=== PATIENT | male | born 1995 | race Two or more races ===

== ENCOUNTER 2016-10-28 12:40 | Emergency (ER) | payer OTHER ==
[2016-10-28 12:51] VITALS: BP 132/60; PULSE 60; TEMP 97.7; BMI 22.4
[2016-10-28] MEDS ORDERED: ONDANSETRON 4 MG/2 ML VIAL IVPB ONE (13:02)
[2016-10-28] MEDS ORDERED: SODIUM CHLORIDE 1,000 ML IV ONE (13:02)
--- NOTE | 2016-10-28 13:02 | PDOC ---
History of Present Illness - General History Source: Patient Exam Limitations: No Limitations - History of Present Illness Initial Comments: 10/28/16 15:43 The patient is a 21 year old male, with no significant past medical history, who presents to the emergency department complaining of abdominal pain for approximately 1 day. The patient reports his pain began after lifting a heavy box of cans yesterday. He reports the pain is constant, nonradiating, and localized to the lower abdomen. Patient rates his pain as an 8/10. He reports associated nausea, but denies vomiting, diarrhea, or constipation. His last bowel movement was this morning(normal stool), which did not alleviate his pain. He reports his pain is exacerbated with movement or lifting, but alleviated with tylenol. The patient reports he was at [facility] about 1 month ago, where he was admitted for 3 days for a virus, but was not given an official diagnosis. He reports a CT was done during his admission, which revealed inflammation of the intestine. The patient denies flank pain, dysuria, hematuria, frequency, or urgency. The patient denies fever, chills, cough, headache, or dizziness. The patient denies chest pain, shortness of breath, diaphoresis, or palpitations. The patient denies any recent travel or sick contacts. Allergies: None reported. Past Surgical History: None reported. Social History: Non-smoker. Denies alcohol or drug use. <Kenia Daniel - Last Filed: 10/28/16 15:42> - General History Source: Patient Exam Limitations: No Limitations - History of Present Illness Travel History: No <Orlin Marvin - Last Filed: 10/29/16 09:37> - General Chief Complaint: Pain Stated Complaint: ABD PAIN, NAUSEA Time Seen by Provider: 10/28/16 12:56 Past History <Kenia Daniel - Last Filed: 10/28/16 15:42> - Psycho/Social/Smoking Cessation Hx Anxiety: No Suicidal Ideation: No Smoking History: Never smoked Have you smoked in the past 12 months: No Information on smoking cessation initiated: No Hx Alcohol Use: No Drug/Substance Use Hx: No Substance Use Type: None <Orlin Marvin - Last Filed: 10/29/16 09:37> - Past Medical History Allergies/Adverse Reactions: Allergies Allergy/AdvReac Type Severity Reaction Status Date / Time No Known Allergies Allergy Verified 10/28/16 12:51 Home Medications: Ambulatory Orders NK [No Known Home Medication] 03/25/16 Review of Systems - Review of Systems Able to Perform ROS?: Yes Comments:: 10/28/16 15:43 CONSTITUTIONAL: No reported: Fever, Chills, Diaphoresis, Generalized Weakness, Malaise, Loss of Appetite HEENT: No reported: Rhinorrhea, Nasal Congestion, Throat Pain, Throat Swelling, Difficulty Swallowing, Mouth Swelling, Ear Pain, Eye Pain, Visual Changes CARDIOVASCULAR: No reported: Chest Pain, Syncope, Palpitations, Irregular Heart Rate, Lightheadedness, Peripheral Edema RESPIRATORY: No reported: Cough, Shortness of Breath, SOB with Exertion, Orthopnea, Wheezing , Stridor, Hemoptysis GASTROINTESTINAL: + Abdominal pain, +Nausea. No reported: Abdominal Distension, Vomiting, Diarrhea , Constipation, Melena, Hematochezia GENITOURINARY: No reported: Dysuria, Frequency, Urgency, Hesitancy, Flank Pain, Genital Pain MUSCULOSKELETAL: No reported: Myalgia, Arthralgia, Joint Swelling, Back pain, Neck Pain SKIN: No reported: Rash, Itching, Pallor HEMEATOLOGIC/IMMUNOLOGIC: No reported: Easy Bleeding, Easy Bruising, Lymphadenopathy, Frequent infections ENDOCRINE: No reported: Unexplained Weight Gain, Unexplained Weight Loss, Heat Intolerance , Cold Intolerance NEUROLOGIC: No reported: Headache, Focal Weakness, Paresthesias, Vertigo, Lightheadedness, Unsteady Gait, Seizure, Mental Status Changes, Incontinence PSYCHIATRIC: No reported: Anxiety, Depression <Daniel,Giomilsy - Last Filed: 10/28/16 15:42> *Physical Exam - Vital Signs Last Vital Signs Temp Pulse Resp BP Pulse Ox 97.7 F 60 18 132/60 99 10/28/16 12:49 10/28/16 12:49 10/28/16 12:49 10/28/16 12:49 10/28/16 12:49 - Physical Exam Comments: 10/28/16 15:43 GENERAL: The patient is awake, alert, and fully oriented, Nontoxic - in no acute distress. HEAD: Normocephalic, atraumatic. EYES: extraocular movements intact, sclera anicteric, conjunctiva clear. ENT: Normal voice, Moist mucous membranes. NECK: Normal range of motion, supple LUNGS: Breath sounds equal, clear to auscultation bilaterally. No wheezes, no rhonchi, no rales. HEART: Regular rate and rhythm, without murmur, rub or gallop. ABDOMEN: +Mild diffuse tenderness in the lower abdomen. Soft, normoactive bowel sounds. No guarding, no rebound. No CVA tenderness EXTREMITIES: Normal range of motion, no edema. No clubbing or cyanosis. No cords, erythema, or tenderness. NEUROLOGICAL: No facial asymmetry, Normal speech, PSYCH: Normal mood, normal affect. SKIN: Warm, Dry, normal turgor <Kenia Daniel - Last Filed: 10/28/16 15:42> - Vital Signs Last Vital Signs Temp Pulse Resp BP Pulse Ox 97.7 F 60 18 132/60 99 10/28/16 12:49 10/28/16 12:49 10/28/16 12:49 10/28/16 12:49 10/28/16 12:49 <Orlin Marvin - Last Filed: 10/29/16 09:37> ED Treatment Course - LABORATORY CBC & Chemistry Diagram: 10/28/16 13:20 10/28/16 13:20 - ADDITIONAL ORDERS Additional order review: Laboratory Results 10/28/16 13:20 Sodium 139 Potassium 4.1 Chloride 103 Carbon Dioxide 28 Anion Gap 8 BUN 11 D Creatinine 0.7 Creat Clearance w eGFR > 60 Random Glucose 79 D Calcium 9.5 Total Bilirubin 0.6 D AST 19 D ALT 18 Alkaline Phosphatase 78 Total Protein 8.0 Albumin 4.6 Lipase 205 10/28/16 13:20 RBC 5.52 MCV 85.7 MCHC 33.7 RDW 13.6 MPV 8.5 Neutrophils % 57.5 Lymphocytes % 33.1 Monocytes % 6.7 Eosinophils % 1.8 Basophils % 0.9 - Medications Given in the ED: ED Medications Discontinued Medications Generic Name Dose Route Start Last Admin Trade Name Freq PRN Reason Stop Dose Admin Ketorolac Tromethamine 30 mg 10/28/16 13:24 10/28/16 13:28 Toradol Injection - IVPUSH 10/28/16 13:25 30 mg ONCE ONE Administration <Kenia Daniel - Last Filed: 10/28/16 15:42> - LABORATORY CBC & Chemistry Diagram: 10/28/16 13:20 10/28/16 13:20 <Orlin Marvin - Last Filed: 10/29/16 09:37> Medical Decision Making - Medical Decision Making 10/28/16 13:24 21y M no pmhx presents wth abdominal pain since yesterday - pt states he was lifting something yesterday and started having lower abd pain, pt states he had similar pain 1 month ago for which he was admitted to [facility] for 3 nights and was told it wa sa virus - no associated f,c, n/v, urinary symptoms. on exam pt had mild tenderness in the mid lower abdomen. suspect strain however will ck ua and labs due to uncertainy due to pts recent admission A portion of this note was documented by scribe services under my direction. I have reviewed the details of the note, within reason, and agree with the documentation with the following case summary and management plan written by me 10/28/16 16:53 labs unremarkble pt feeling improved suspect muscle strain will d/c the pt with pmd fu return precautions were discussed I discussed the physical exam findings, ancillary test results and final diagnoses with the patient. I answered all of the patient's questions. The patient was satisfied with the care received and felt comfortable with the discharge plan and treatment plan. The patient will call their primary care physician within 24 hours to arrange follow-up and will return to the Emergency Department with any new, persistent or worsening symptoms. <Orlin Marvin - Last Filed: 10/29/16 09:37> *DC/Admit/Observation/Transfer - Attestations Scribe Attestion: 10/28/16 15:43 Documentation prepared by Kenia Daniel, acting as certified medical biller for Orlin Marvin MD. <Kenia Daniel - Last Filed: 10/28/16 15:42> - Discharge Dispostion Admit: No <Orlin Marvin - Last Filed: 10/29/16 09:37> Diagnosis at time of Disposition: Abdominal muscle strain Qualifiers: Encounter type: initial encounter Qualified Code(s): S39.011A - Strain of muscle, fascia and tendon of abdomen, initial encounter - Discharge Dispostion Disposition: HOME Condition at time of disposition: Improved - Referrals Referrals: [facility] [Provider Group] - Patient Instructions Printed Discharge Instructions: DI for Abdominal Muscle Strain Additional Instructions: Take tylenol for pain. avoid heavy lifting. Print Language: HUNGARIAN
[2016-10-28] MEDS ORDERED: KETOROLAC TROMETHAMINE 30 MG/1 ML VIAL IVPUSH ONE (13:24)
[2016-10-28] MEDS ORDERED: KETOROLAC TROMETHAMINE 30 MG/1 ML VIAL ONE (13:24)
[2016-10-28 13:28] LABS: BASOPHIL 0.9 % (0-2.0); EOSINOPHIL 1.8 % (0-4.5); MCH 28.9 pg (25.7-33.7); MCHC 33.7 g/dl (32.0-35.9); MEAN CELL VOLUME 85.7 fl (80-96); MEAN PLT VOLUME 8.5 fl (7.5-11.1); NEUTROPHILS 57.5 % (42.8-82.8); PLATELET COUNT 152 K/MM3 (134-434); RDW 13.6 % (11.9-15.9); WHITE BLOOD COUNT 3.6 K/mm3 (4.0-10.0)
[2016-10-28 14:56] LABS: ALBUMIN 4.6 g/dl (3.4-5.0); ANION GAP 8 (8-16); CALCIUM 9.5 mg/dL (8.5-10.1); CO2 28 mmol/L (21-32); CREATININE 0.7 mg/dL (0.7-1.3); GLUCOSE,RANDOM 79 mg/dL (74-106); SGOT/AST 19 U/L (15-37); SGPT/ALT 18 U/L (12-78)
[2016-10-28 14:58] LABS: ALK PHOS 78 U/L (45-117); BILIRUBIN,TOTAL 0.6 mg/dL (0.2-1.0)
[2016-10-28 16:30] LABS: URINE APPEARANCE CLEAR; URINE BILIRUBIN NEGATIVE (NEGATIVE); URINE BLOOD NEGATIVE (NEGATIVE); URINE COLOR LTYELLOW; URINE GLUCOSE (UA) NEGATIVE (NEGATIVE); URINE KETONE NEGATIVE (NEGATIVE); URINE LEUK ESTERASE NEGATIVE (NEGATIVE); URINE NITRITE NEGATIVE (NEGATIVE); URINE PROTEIN NEGATIVE (NEGATIVE); URINE UROBILINOGEN NEGATIVE E.U./dl (0.2-1.0)
== END 2016-10-28 17:05 | disposition home or self-care (01) ==
LOC: JER 12:40
PROC: 3E0333Z Introduction of Anti-inflammatory into Peripheral Vein, Percutaneous Approach (ICD-10-PCS; principal; 2016-10-28)
DX: S39.011A Strain of muscle, fascia and tendon of abdomen, initial encounter (principal); X58.XXXA Exposure to other specified factors, initial encounter; Y93.89 Activity, other specified; Y92.9 Unspecified place or not applicable
CPT/HCPCS: 36415; 80053; 81003; 83690; 85025; 96374; 99282-25

== ENCOUNTER 2017-04-14 13:28 | Emergency (ER) | payer SELFPAY ==
[2017-04-14 13:35] VITALS: BP 123/64; PULSE 98; TEMP 98.5; BMI 23.3
== END 2017-04-14 15:39 | disposition left against medical advice (07) ==
LOC: JERFT 13:28
DX: Z53.21 Procedure and treatment not carried out due to patient leaving prior to being seen by health care provider (principal)
CPT/HCPCS: 99281-25

== ENCOUNTER 2017-04-15 22:49 | Emergency (ER) | payer SELFPAY ==
--- NOTE | 2017-04-15 22:54 | PDOC ---
History of Present Illness - General Chief Complaint: Wound Stated Complaint: FACE WOUND Past History - Past Medical History Allergies/Adverse Reactions: Allergies Allergy/AdvReac Type Severity Reaction Status Date / Time No Known Allergies Allergy Verified 04/14/17 13:35 Home Medications: Ambulatory Orders NK [No Known Home Medication] 03/25/16 - Psycho/Social/Smoking Cessation Hx Anxiety: No Suicidal Ideation: No Smoking History: Never smoked Have you smoked in the past 12 months: No Hx Alcohol Use: No Drug/Substance Use Hx: No Substance Use Type: None *DC/Admit/Observation/Transfer Diagnosis at time of Disposition: Closed tripod fracture of zygomaticomaxillary complex - Discharge Dispostion Disposition: HOME Condition at time of disposition: Stable Admit: No - Referrals - Patient Instructions Printed Discharge Instructions: DI for Orbital Fracture, DI for Zygomatic Fracture Additional Instructions: [facility] Department of Dentistry Contact Information: [address] [place] [id number] you would like to meet with Dr. Isac Morales to discuss your options, please contact our practice today. Dr. Morales will be happy to answer your questions and talk with you about procedures that may be right for you. GIVE US A CALL [address] [place], [place] [address]jer[address] [facility] [address] [place] [address] [address] [place] [address] [facility] [address] [place] [id number] Print Language: FIJIAN
[2017-04-15] MEDS ORDERED: CEPHALEXIN MONOHYDRATE 250 MG CAPSULE (FP) PO ONE (22:55)
[2017-04-15 23:40] VITALS: BP 127/72; PULSE 74; TEMP 98.2; BMI 22.4
[2017-04-16] MEDS ORDERED: IBUPROFEN 600 MG TABLET (FP) PO ONE ×2 (01:20→01:27)
== END 2017-04-16 01:32 | disposition home or self-care (01) ==
LOC: FER 22:49
DX: S02.402A Zygomatic fracture, unspecified side, initial encounter for closed fracture (principal); X58.XXXA Exposure to other specified factors, initial encounter; Y93.9 Activity, unspecified; Y92.9 Unspecified place or not applicable
CPT/HCPCS: 70486-TC; 99281-25

== ENCOUNTER 2020-12-29 20:56 | Emergency (ER) | payer SELFPAY ==
[2020-12-29 20:59] VITALS: BMI 26.8
[2020-12-29] MEDS ORDERED: SODIUM CHLORIDE 1,000 ML IV STA (21:48)
[2020-12-29] MEDS ORDERED: ACETAMINOPHEN 1000 MG/100 ML VIAL (NON FORMULARY) IVPB ONE (21:48)
[2020-12-29] MEDS ORDERED: ACETAMINOPHEN INJECTION 100 ML IVPB ONE ×2 (22:08→22:51)
[2020-12-29 22:32] LABS: BASO % 0.9 % (0-2.0); EOS % 2.3 % (0-4.5); HEMATOCRIT 43.3 % (35.4-49); HEMOGLOBIN 14.9 GM/dL (11.7-16.9); LYMPH % 29.1 % (8-40); MCH 30.6 pg (25.7-33.7); MCHC 34.4 g/dl (32.0-35.9); MEAN CELL VOLUME 88.9 fl (80-96); MEAN PLT VOLUME 8.7 fl (7.5-11.1); MONO % 6.2 % (3.8-10.2); NEUT % 61.5 % (42.8-82.8); PLATELET COUNT 179 K/MM3 (134-434); RBC 4.87 M/mm3 (4.00-5.60); WHITE BLOOD COUNT 5.9 K/mm3 (4.0-10.0)
[2020-12-29 22:34] LABS: URINE APPEARANCE CLEAR; URINE BILIRUBIN NEGATIVE (NEGATIVE); URINE COLOR YELLOW; URINE GLUCOSE (UA) NEGATIVE (NEGATIVE); URINE KETONE NEGATIVE (NEGATIVE); URINE LEUK ESTERASE NEGATIVE (NEGATIVE); URINE NITRITE NEGATIVE (NEGATIVE); URINE PROTEIN NEGATIVE (NEGATIVE); URINE UROBILINOGEN 0.2 mg/dL (0.2-1.0)
[2020-12-29 22:52] LABS: CALCIUM 8.9 mg/dL (8.5-10.1)
[2020-12-29 22:53] LABS: ALBUMIN 4.4 g/dl (3.4-5.0); BLOOD UREA NITROGEN 10.4 mg/dL (7-18)
[2020-12-29 22:56] LABS: CREATININE 0.8 mg/dL (0.55-1.3)
[2020-12-29 22:57] LABS: BILIRUBIN,TOTAL 0.5 mg/dL (0.2-1)
[2020-12-29 22:58] LABS: TOT PROT 7.7 g/dl (6.4-8.2)
[2020-12-30] MEDS ORDERED: morphine CARPU-JECT 2 MG/1 ML DISP.SYRIN IVPUSH ONE (01:28)
[2020-12-30] MEDS ORDERED: MORPHINE SULFATE 2 MG/ML VIAL ONE (02:18)
[2020-12-30 03:54] VITALS: BP 136/87; PULSE 55; TEMP 97.9
[2020-12-30] MEDS ORDERED: KETOROLAC TROMETHAMINE 15 MG/ML VIAL IVPUSH ONE (04:24)
[2020-12-30] MEDS ORDERED: KETOROLAC TROMETHAMINE 15 MG/ML VIAL ONE (04:31)
== END 2020-12-30 04:50 | disposition home or self-care (01) ==
LOC: JER 20:56
PROC: 3E0333Z Introduction of Anti-inflammatory into Peripheral Vein, Percutaneous Approach (ICD-10-PCS; principal; 2020-12-29)
PROC: 3E0333Z Introduction of Anti-inflammatory into Peripheral Vein, Percutaneous Approach (ICD-10-PCS; 2020-12-29)
PROC: 3E033NZ Introduction of Analgesics, Hypnotics, Sedatives into Peripheral Vein, Percutaneous Approach (ICD-10-PCS; 2020-12-29)
PROC: 3E0337Z Introduction of Electrolytic and Water Balance Substance into Peripheral Vein, Percutaneous Approach (ICD-10-PCS; 2020-12-29)
DX: R10.31 Right lower quadrant pain (principal)
CPT/HCPCS: 36415; 74177-TC; 80053; 81003; 85025; 87086; 87491; 87591; 99285-25; J0131